=== PATIENT | female | born 2000 | race Caucasian/White ===

== ENCOUNTER 2024-06-17 09:59 | Emergency (ER) | payer BC, SELFPAY ==
[2024-06-17 10:14] VITALS: BP 140/88; PULSE 81; RESP 20; TEMP 36.8; O2SAT 100
[2024-06-17 11:24] LABS: EDUAAPPEAR Cloudy; EDUABILI Negative; EDUABLOOD Negative; EDUACOLOR1 Yellow; EDUAGLUCOSE Negative; EDUAKETONE Negative; EDUALEUKO Trace; EDUANITRATE Negative; EDUAPROTEIN Negative; EDUASPGRAVITY 1.025; EDUAUROBILI 0.2
--- NOTE | 2024-06-17 11:41 | ED.FEMALEGU ---
HPI - Female Genitourinary General Chief complaint: Urogenital-Female Stated complaint: poss UTI Time Seen by Provider: 06/17/24 11:10 Source: patient, RN notes reviewed and old records reviewed Mode of arrival: ambulatory Limitations: no limitations History of Present Illness HPI Narrative: 23 year old female who presents to [facility] care with complaints of symptoms of UTI since last week and did take a dose of AZO on Sunday of last week. Patient reports some right mid abdomen discomfort with right back pain no blood in urine noted or any history of kidney stones.Patient reports burning, frequency of urination with voiding of decreased amounts. Patient reports no concern for STD exposure.Has taken some Ibuprofen for her discomfort. MD elicited complaint: UTI Onset (ago): day(s) (6 days) Severity: moderate Severity scale (1-10): 5 Quality of pain: burning and aching Vaginal discharge: none Treatment prior to arrival: NSAIDs Related Data Home Medications Medication Instructions Recorded Confirmed norethindrone 1 mg-ethinyl See Rx Instructions .Route .COMPLEX 06/17/24 06/17/24 estradiol 20 mcg (24)-iron 75 mg (4) tablet (Aurovela 24 Fe) Allergies Allergy/AdvReac Type Severity Reaction Status Date / Time No Known Allergies Allergy Verified 06/17/24 10:22 Review of Systems Review of Systems: CONSTITUTIONAL: Denies fever, chills, or sweats. CARDIOVASCULAR: Denies chest pain, palpitations, or edema. RESPIRATORY: Denies cough or dyspnea. GASTROINTESTINAL: report right mid abdominal pain, no nausea, vomiting, or diarrhea. GENITOURINARY: Reports dysuria, frequency, urgency, voiding in small amounts. right flank pain no hematuria. SKIN: Denies rash or itching. MUSCULOSKELETAL: Denies back pain or myalgia. reports right CVA tenderness NEUROLOGIC: Denies headache All systems reviewed & are unremarkable except as noted in HPI and below PMFSH Past Medical History Medical History (Updated 06/18/24 @ 10:24 by Slime Wong NP) No pertinent past medical history Surgical History Surgical History (Updated 06/18/24 @ 10:19 by Slime Wong NP) No history of previous surgery Social History Social History (Updated 06/18/24 @ 10:20 by Slime Wong NP) Smoking status: Never smoker Alcohol intake: never Substance use: never Living arrangements: with family Gender identity (if verbalized by the patient): Female Comments At time of signature, agree with nursing past medical, surgical, social and family history. There is no relevant family history pertinent to the presenting complaint Exam Narrative: GENERAL: Well-appearing, well-nourished, and in no acute distress. HEAD: Normocephalic, atraumatic. NECK: Supple. no lymphadenopathy CHEST: Clear to auscultation. No respiratory distress.SAO2 100% on room air HEART: Regular rate and rhythm. No murmur heard. Normal peripheral pulses. ABDOMEN: Soft, tender right mid abdomen, nondistended, normal active bowel sounds. right CVA tenderness, no McBurney point tenderness, burning with urination frequency urgency EXTREMITIES: Normal range of motion. No edema. SKIN: Warm, dry, no rash. NEURO: No focal deficits. Alert and oriented x3. Course Course Emergency Course: Patient is aware of diagnosis, understands and agrees to treatment plan.? Anticipatory guidance given.? Patient agrees to follow-up as directed and is aware of reasons to seek care at the emergency department. Portions of this record may have been created with voice recognition software Level of Care: Express Care Visit Vital Signs Vital signs: Vital Signs Temperature 36.8 C 06/17/24 10:14 Pulse Rate 81 06/17/24 10:14 Respiratory Rate 20 06/17/24 10:14 Blood Pressure 140/88 06/17/24 10:14 Pulse Oximetry 100 06/17/24 10:14 Oxygen Delivery Room Air 06/17/24 10:14 Temperature 36.8 C 06/17/24 10:14 Pulse Rate 81 06/17/24 10:14 Respiratory Rate
== END 2024-06-17 12:06 | disposition home or self-care (01) ==
PROVIDERS: Emergency Provider Registered Nurse
DX: N39.0 Urinary tract infection, site not specified (principal)
CPT/HCPCS: 81003; 87077; 87086; 87088; 87186; 99213; G0463